=== PATIENT | male | born 1950 | race African-American/Black ===

== ENCOUNTER 2019-07-01 11:45 | Emergency (ER) | payer MEDICAID, MEDICARE ==
[~2019-07-01] VITALS: Ht 185.4 cm; Wt 75.0 kg
[2019-07-01 12:00] VITALS: BP 165/91
[2019-07-01] MEDS ORDERED: MORPHINE SULFATE 2 MG/ML CPJ (NOT FOR IM USE) IV NR (16:15)
[2019-07-01 17:18] LABS: CLARITY URINE CLOUDY (CLEAR); COLOR URINE YELLOW (YELLOW); KETONES URINE NEGATIVE (NEGATIVE); LEUKOCYTE ESTERASE URINE 3+ (NEGATIVE); NITRITE URINE POSITIVE (NEGATIVE); OCCULT BLOOD URINE 1+ (NEGATIVE); PH URINE 7.5 (4.5-8.0); PROTEIN URINE NEGATIVE (NEGATIVE); SPECIFIC GRAVITY URINE 1.009 (1.005-1.030); UROBILINOGEN URINE 0.2 E.U./dL (0.2-1.0)
== END 2019-07-01 17:06 | disposition home or self-care (01) ==
LOC: ER 11:45
DX: R30.0 Dysuria (principal)
CPT/HCPCS: 81003; 87077; 99283; 99284; J2270

== ENCOUNTER 2022-12-10 12:13 | Emergency (ER) | payer MEDICARE, MEDICAID ==
[~2022-12-10] VITALS: Ht 188 cm; Wt 90.7 kg
[2022-12-10 12:52] VITALS: O2SAT 100
[2022-12-10] MEDS ORDERED: KETOROLAC 30MG/ML VIAL IM ONE (16:30)
[2022-12-10] MEDS ORDERED: IBUP-2029 MT (16:44)
[2022-12-10 17:29] VITALS: BP 112/74; PULSE 93; RESP 18; TEMP 98.4
== END 2022-12-10 17:27 | disposition home or self-care (01) ==
LOC: ER 12:13
DX: R07.89 Other chest pain (principal); M54.9 Dorsalgia, unspecified; Y04.0XXA Assault by unarmed brawl or fight, initial encounter; Y93.89 Activity, other specified; Y92.89 Other specified places as the place of occurrence of the external cause; Y99.8 Other external cause status
CPT/HCPCS: 99283; 96372; J1885

== ENCOUNTER 2023-01-18 12:34 | Emergency (ER) | payer MEDICARE, MEDICAID ==
[~2023-01-18] VITALS: Ht 188 cm; Wt 81.0 kg
[~2023-01-18 12:34] MED LIST: AMLO10TA80 PO; DOCU-150 PO; IBUP-2029 PO; SULF1TAB47 MT
[2023-01-18 12:47] VITALS: BP 93/66; TEMP 98.3; O2SAT 98
[2023-01-18 12:48] VITALS: PULSE 96; RESP 14
== END 2023-01-18 12:59 | disposition left against medical advice (07) ==
LOC: ER 12:47
DX: Z46.6 Encounter for fitting and adjustment of urinary device (principal); Z53.21 Procedure and treatment not carried out due to patient leaving prior to being seen by health care provider
CPT/HCPCS: 99281